=== PATIENT | female | born 1975 | race Caucasian/White ===

== ENCOUNTER 2021-03-05 02:46 | Emergency (ER) | payer SELFPAY ==
[~2021-03-05] VITALS: Ht 157.5 cm; Wt 49.9 kg
[2021-03-05 02:47] VITALS: BP 102/71
== END 2021-03-05 03:54 | disposition home or self-care (01) ==
LOC: ER 02:48
DX: F15.90 Other stimulant use, unspecified, uncomplicated (principal); J45.909 Unspecified asthma, uncomplicated; F17.200 Nicotine dependence, unspecified, uncomplicated; Z71.1 Person with feared health complaint in whom no diagnosis is made; Z60.2 Problems related to living alone

== ENCOUNTER 2021-03-30 14:02 | Emergency (ER) | payer SELFPAY ==
[~2021-03-30] VITALS: Ht 157.5 cm; Wt 57.6 kg
[2021-03-30 14:13] VITALS: BP 122/76
[2021-03-30] MEDS ORDERED: ALBU8.5H8 INH (14:32)
--- NOTE | 2021-03-30 14:38 | NUR ---
Patient discharged to home in stable condition. Written and verbal after care instructions given. Patient verbalizes understanding of instruction. Pt ambulatory with a steady gait
== END 2021-03-30 14:41 | disposition home or self-care (01) ==
LOC: ER 14:05
DX: J45.909 Unspecified asthma, uncomplicated (principal); Z76.0 Encounter for issue of repeat prescription; F17.200 Nicotine dependence, unspecified, uncomplicated; Z60.2 Problems related to living alone

== ENCOUNTER 2024-09-06 19:14 | Emergency (ER) | payer MEDICAID ==
[~2024-09-06 19:14] MED LIST: ALBU8.5H8 INH
== END 2024-09-06 20:50 | disposition home or self-care (01) ==
LOC: ER 19:15
DX: R11.10 Vomiting, unspecified (principal); Z53.21 Procedure and treatment not carried out due to patient leaving prior to being seen by health care provider